=== PATIENT | female | born 1995 | race Caucasian/White ===

== ENCOUNTER 2017-02-19 19:30 | Emergency (ER) | payer OTHER ==
[2017-02-19] MEDS ORDERED: fentaNYL 100 MCG/2 ML INJ ONE (19:40)
[2017-02-19] MEDS ORDERED: ONDANSETRON 4 MG/2 ML VIAL ONE (19:40)
[2017-02-19] MEDS ORDERED: NS 1,000 ML IV ONE ×3 (19:50→20:59)
[2017-02-19] MEDS ORDERED: ONDANSETRON 4 MG/2 ML VIAL IVP ONE ×2 (19:50→19:51)
[2017-02-19] MEDS ORDERED: fentaNYL 100 MCG/2 ML INJ IVP ONE ×2 (19:50→19:51)
--- NOTE | 2017-02-19 19:50 | EDPHY ---
H & P Smoking Status: Never smoked Time Seen by Provider: 02/19/17 19:33 HPI/ROS: CHIEF COMPLAINT: Abdominal pain HISTORY OF PRESENT ILLNESS: 21-year-old female presents to the emergency department with severe abdominal pain that began abruptly around 3:00 p.m.. Patient states that she has never had pain like this in the past. She feels nauseous although no vomiting. No diarrhea. No urinary symptoms. No chest pain or difficulty breathing. No urinary symptoms. Last menstrual period was 2 weeks ago and she denies . She has had ovarian cysts in the past and states that this feels different. She has never had a kidney stone. She denies any reported trauma. REVIEW OF SYSTEMS: Constitutional: No fever, no chills. Eyes: No double or blurry vision. ENT: No sore throat. Respiratory: No cough, no shortness of breath. Cardiac: No chest pain. Gastrointestinal: Abdominal pain. No vomiting or diarrhea Genitourinary: No dysuria. Musculoskeletal: Right flank pain as above. No neck pain. Skin: No rashes. Neurological: No headache. (Ct Alejandro) Past Medical/Surgical History: Ovarian cysts on oral contraceptive pills (Ct Alejandro) Social History: Single (Ct Alejandro) Physical Exam: General Appearance: Alert, tearful, hysterical Eyes: Pupils equal and round. Extraocular motions are all intact. ENT: Mouth: Mucous membranes moist. Respiratory: No wheezing, rhonchi, or rales, lungs are clear to auscultation. Cardiovascular: Regular rate and rhythm. Gastrointestinal: Abdomen is soft. Tenderness with palpation in the right lower quadrant. She also has pain with palpation in the right flank. Neurological: Alert and oriented x 3, cranial nerves II through XII grossly intact Skin: Warm and dry, no rashes. Musculoskeletal: Nontender to palpate along the cervical, thoracic or lumbar spine. Neck is supple. Extremities: Full range of motion and no peripheral edema. Psychiatric: Patient is oriented X 3, there is no agitation. (Ct Alejandro) Constitutional: Initial Vital Signs Temperature (C) 37.1 C 02/19/17 19:37 Heart Rate 116 H 02/19/17 19:37 Respiratory Rate 18 02/19/17 19:37 Blood Pressure 146/112 H 02/19/17 19:37 O2 Sat (%) 99 02/19/17 19:37 O2 Delivery Mode Room Air Allergies/Adverse Reactions: No Known Allergies Allergy (Unverified 02/19/17 19:36) Home Medications: Medication Instructions Recorded Cephalexin [Keflex] 500 mg PO QID #40 cap 02/19/17 Hydrocodone/APAP 5/325 [[place] 1 each PO Q4-6PRN PRN #11 tab 02/19/17 5/325 (*)] Yazmin 28 Tablet 02/19/17 Medical Decision Making - Diagnostics Imaging: Discussed imaging studies w/ call center trainer Radiologist ED Course/Re-evaluation: 21-year-old female presents to the emergency department in severe pain. She had abrupt onset of abdominal pain that began at 3:00 p.m.. The patient was able to provide a urine specimen which revealed large amount of blood. Her last menstrual period was 2 weeks ago. She denies any vaginal bleeding. I think it is quite likely that this patient has a kidney stone given her colicky pain that is severe. She had an IV established and was given IV fentanyl and Zofran. Urinalysis reveals 50-200 red blood cells and 50-200 white blood cells with bacteria present. Urine cultures pending. I spoke with Dr. Hadley García, radiologist, he recommended CT with IV contrast if we were worried about an abscess. CT scan with IV contrast was obtained which revealed evidence of pyelonephritis without evidence of abscess, perforation or hydronephrosis or kidney stone. She has a normal appendix. The patient was given 1 g of IV Rocephin and oral Keflex. The patient also received initially fentanyl and Dilaudid for pain and then was given IV normal saline and IV Toradol. Patient was feeling much better and is comfortable being discharged home. (Ct Alejandro) I did not see this patient while she was in the emergency department. However her care was discussed with the PA while the patient was in the department. I agree with treatment plan and management (Flavio Chase) Differential Diagnosis: Including but not limited to urinary tract infection, pyelonephritis, kidney stone, acute appendicitis (Ct Alejandro) - Data Points Laboratory Results: Laboratory Results 02/19/17 19:42 02/19/17 19:42 Medications Given: Discontinued Medications Fentanyl (Sublimaze) 50 mcg IVP EDNOW ONE Stop: 02/19/17 19:51 Last Admin: 02/19/17 19:57 Dose: Not Given Fentanyl (Sublimaze) 50 mcg IVP EDNOW ONE Stop: 02/19/17 19:52 Last Admin: 02/19/17 19:53 Dose: 50 mcg Hydromorphone HCl (Dilaudid) 0.5 mg IVP EDNOW ONE Stop: 02/19/17 20:22 Last Admin: 02/19/17 20:21 Dose: 0.5 mg Sodium Chloride (Ns) 1,000 mls @ 0 mls/hr IV ONCE ONE PRN Reason: Wide Open Stop: 02/19/17 19:51 Last Admin: 02/19/17 19:57 Dose: Not Given Sodium Chloride (Ns) 1,000 mls @ 0 mls/hr IV ONCE ONE PRN Reason: Wide Open Stop: 02/19/17 19:52 Last Admin: 02/19/17 19:53 Dose: 1,000 mls Ceftriaxone Sodium/Dextrose (Rocephin 1 Gm (Premix)) 50 mls @ 100 mls/hr IV EDNOW ONE PRN Reason: Protocol Stop: 02/19/17 21:20 Last Admin: 02/19/17 21:13 Dose: 50 mls Sodium Chloride (Ns) 1,000 mls @ 0 mls/hr IV ONCE ONE PRN Reason: Wide Open Stop: 02/19/17 21:00 Last Admin: 02/19/17 21:13 Dose: 1,000 mls Ketorolac Tromethamine (Toradol) 30 mg IVP EDNOW ONE Stop: 02/19/17 21:00 Last Admin: 02/19/17 21:09 Dose: 30 mg Ondansetron HCl (Zofran) 4 mg IVP EDNOW ONE Stop: 02/19/17 19:51 Last Admin: 02/19/17 19:53 Dose: 4 mg Ondansetron HCl (Zofran) 4 mg IVP EDNOW ONE Stop: 02/19/17 19:52 Last Admin: 02/19/17 19:56 Dose: Not Given Departure - Departure Disposition: Home, Routine, Self-Care Clinical Impression: Pyelonephritis Condition: Good Instructions: Kidney Infection (ED) Additional Instructions: Keflex 500 mg 4 times daily for 10 days. Drink plenty of fluids. Ibuprofen 600 mg every 8 hours as needed for pain. You should not take any ibuprofen tonight since your given Toradol IV in the emergency department. Hydrocodone for severe pain as directed. Call [phone] for the results of your urine culture in 48 hours. Return to the emergency department if he develops fever, vomiting, worsening back pain, or if you feel worse in any way. Referrals: Crystal Barahona MD [Primary Care Provider] - 1-2 days without fail Stand Alone Forms: School Excuse Prescriptions: Cephalexin [Keflex] 500 mg PO QID #40 cap Hydrocodone/APAP 5/325 [[place] 5/325 (*)] 1 each PO Q4-6PRN PRN #11 tab PRN Reason: Pain, Severe
[2017-02-19 19:53] LABS: % IMMATURE GRANULYOCYTES 0.3 % (0.0-1.1); ABSOLUTE IMMATURE GRANULOCYTES 0.03 10^3/uL (0.00-0.10); ADD DIFF? NO; ADD MORPH? NO; ADD SCAN? NO; ATYPICAL LYMPHOCYTE FLAG 30 (0-99); FRAGMENT RBC FLAG 0 (0-99); HEMATOCRIT 39.6 % (38.0-47.0); HEMOGLOBIN 13.7 g/dL (12.6-16.3); LEFT SHIFT FLG 10 (0-99); LIPEMIA HEMOLYSIS FLAG 90 (0-99); MEAN CELL HEMOGLOBIN 29.8 pg (27.9-34.1); MEAN CELL HEMOGLOBIN CONCENTR. 34.6 g/dL (32.4-36.7); MEAN CELL VOLUME 86.3 fL (81.5-99.8); MEAN PLATELET VOLUME 10.2 fL (8.7-11.7); PLATELET CLUMPS FLAG 10 (0-99); PLATELET COUNT 261 10^3/uL (150-400); RED BLOOD CELL COUNT 4.59 10^6/uL (4.18-5.33); RED CELL DISTRIBUTION WIDTH 11.8 % (11.5-15.2)
[2017-02-19 19:57] LABS: COLOR YELLOW; LEUKOCYTE ESTERASE,URINE 2+ (NEGATIVE); NITRITE,URINE POSITIVE (NEGATIVE)
[2017-02-19 19:58] VITALS: RESP 16
[2017-02-19 20:01] LABS: ANION GAP 14 mEq/L (8-16); CALCIUM 10.1 mg/dL (8.5-10.4); CARBON DIOXIDE 22 mEq/l (22-31); CHLORIDE 103 mEq/L (97-110); CREATININE 0.7 mg/dL (0.6-1.0); GLOMERULAR FILTRATION RATE > 60; GLUCOSE 109 mg/dL (70-100); POTASSIUM 3.8 mEq/L (3.5-5.2); SODIUM 139 mEq/L (134-144)
[2017-02-19 20:04] LABS: BACTERIA 1+ /hpf (NONE SEEN); MUCUS TRACE /lpf (NONE-1+); RBC,URINE 50-182 /hpf (0-3); WBC,URINE 50-182 /hpf (0-3)
[2017-02-19] MEDS ORDERED: HYDROmorphONE/DILAUDID 1 MG/ML SYR ONE (20:17)
[2017-02-19] MEDS ORDERED: HYDROmorphONE/DILAUDID 1 MG/ML SYR IVP ONE (20:21)
[2017-02-19] MEDS ORDERED: IOPAMIDOL (ISOVUE-300) 100 ML BTL IV ONE (20:27)
[2017-02-19] MEDS ORDERED: KETOROLAC 30 MG/1 ML SDV IVP ONE (20:59)
[2017-02-19] MEDS ORDERED: CEPHALEXIN 500MG PREPACK#4 BTL TAKEHOME ONE (22:10)
[2017-02-19] MEDS ORDERED: HYDROCOD/APAP 5/325 PREPACK#6 BTL TAKEHOME ONE (22:10)
[2017-02-19 22:32] VITALS: O2SAT 99
[2017-02-19 22:34] VITALS: BP 111/81; PULSE 72; TEMP 96.8
== END 2017-02-19 22:31 | disposition home or self-care (01) ==
DX: N12 Tubulo-interstitial nephritis, not specified as acute or chronic (principal); B96.20 Unspecified Escherichia coli [E. coli] as the cause of diseases classified elsewhere
CPT/HCPCS: 96365; J0696; J1170; J1885; J2405; J3010; Q9967